=== PATIENT | female | born 1950 | race Caucasian/White ===

== ENCOUNTER 2017-11-07 19:34 | Emergency (ER) | payer MEDICARE, BC ==
[2017-11-07 20:11] LABS: BASOPHILS 0.2 % (0-2); EOSINOPHILS 1.5 % (0-7); HEMATOCRIT 39.7 % (36.0-48.0); HEMOGLOBIN 12.8 g/dL (12-16); IMMATURE GRANULOCYTES 0.2 % (0-5); LYMPHOCYTES 19.2 % (15-50); MCHC 32.2 g/dL (31.0-37.0); MCV 80.7 fL (80.0-100.0); MEAN PLATELET VOLUME 9.6 fL (7.4-10.4); MONOCYTES 8.2 % (2-11); NEUTROPHILS 70.7 % (40-80); PLATELET COUNT 215 10x3/uL (130-400); RBC 4.92 10x6/uL (4.00-5.40); RDW 14.4 % (11.5-14.5)
[2017-11-07 20:37] LABS: ALBUMIN 3.8 g/dL (3.4-5.0); ALKALINE PHOSPHATASE 112 U/L (46-116); ALT (SGPT) 25 U/L (10-68); AMYLASE - SERUM 18 U/L (25-115); BILIRUBIN - TOTAL 0.31 mg/dL (0.2-1.3); CALC OSMOLALITY 284 mosm/kg (275-300); CALCIUM 9.4 mg/dL (8.5-10.1); CARBON DIOXIDE 27.2 mmol/L (21.0-32.0); CHLORIDE - SERUM 103 mmol/L (98-107); CREATININE - SERUM 0.8 mg/dL (0.6-1.3); GLUCOSE 222 mg/dL (74-106); POTASSIUM - SERUM 3.9 mmol/L (3.5-5.1); PROTEIN - SERUM 7.4 g/dL (6.4-8.2); SODIUM 140 mmol/L (136-145); UREA NITROGEN 11 mg/dL (7-18); eGFR NON AFRICAN AMERICAN 76 mL/min (90-120)
[2017-11-07 20:47] LABS: LIPASE 36 U/L (73-393)
[2017-11-07 20:49] LABS: APPEARANCE HAZY (CLEAR); BILIRUBIN NEGATIVE (NEGATIVE); COLOR YELLOW (YELLOW); GLUCOSE 100 mg/dL (NEGATIVE); KETONE NEGATIVE (NEGATIVE); NITRITE NEGATIVE (NEGATIVE); PROTEIN NEGATIVE (NEGATIVE); UROBILINOGEN NORMAL (NORMAL)
[2017-11-07 20:50] LABS: BACTERIA MODERATE /hpf (NONE SEEN); EPITHELIAL CELLS 0-5 /hpf (0-5); RED CELLS - URINE >50 /hpf (0-5)
== END 2017-11-07 23:11 | disposition home or self-care (01) ==
LOC: D.ER 19:34
PROVIDERS: Family Medicine
DX: N20.0 Calculus of kidney (principal); E11.9 Type 2 diabetes mellitus without complications; I10 Essential (primary) hypertension; K58.9 Irritable bowel syndrome, unspecified

== ENCOUNTER 2018-07-04 22:14 | Observation (INO) | payer MEDICARE, BC ==
[~2018-07-04] VITALS: Ht 160 cm; Wt 86.4 kg
--- NOTE | ~2018-07-04 | HEMODYNAMI ---
PATIENT:JORGE LOPEZ MEDICAL RECORD: [id number] : 50 [id number] ADMISSION DATE: 07/04/18 Generatedon:07/05/201810:52 Patient name: JORGE LOPEZ Patient #: [id number] SSN: : 1950 Date of study: 07/05/2018 Page: Of Hemodynamic Procedure Report Patient Data Patient Demographics Procedure consent was obtained First Name: JORGE Gender: Female Last Name: JOHN : 1950 Patient #: [id number] Age: 68 year(s) Race: Unknown Additional ID: [id number] Contact details Address: [address] [place] [address] [address] State: [place] City: [place] Zip code: [address] Past Medical History Allergies: No known allergies Admission Admission Data Admission Date: 07/04/2018 Admission Time: 23:59 Admit Source: Emergency department Room #: D.5 Procedure Procedure Types Cath Procedure Diagnostic Procedure LHC LHC w/Coronaries Procedure Description Procedure Date Procedure Date: 07/05/2018 Procedure Start Time: 10:36 Procedure End Time: 10:52 Procedure Staff Name Function Jovan Bishop MD Performing Physician Ana Du RT Monitor Carito Plummer RN Nurse Ang Dougherty RT Scrub Procedure Data Cath Procedure Fluoroscopy Diagnostic fluoroscopy Total fluoroscopy Time: 2.2 time: 2.2 min min Diagnostic fluoroscopy Total fluoroscopy dose: 404 dose: 404 mGy mGy Contrast Material Contrast Material Type Amount (ml) Isovue 300 51 Entry Location Entry Primary Successful Side Size Upsize Upsize Entry Closure Haddad ccessful Closure Location (Fr) 1 (Fr) 2 (Fr) Remarks Device Remarks Femoral Right 5 Fr Manual vein Compression Femoral Right 5 Fr Exoseal artery Estimated blood loss: 5 ml Diagnostic catheters Device Type Used For End Catheter Placement MULTIPACK JL 4.0 5Fr LV Angiography catheter MULTIPACK 3DRC 5Fr Right Coronary catheter Angiography MULTIPACK Pigtail 5 Fr LV Angiography catheter Procedure Complications No complications Procedure Medications Medication Administration Route Dosage 0.9% NaCl I.V. ml/hr Oxygen etCO2 Nasal cannula 2 l/min Zofran I.V. 4 mg Heparin Flush Bag added to field 2 bags (1000units/500ml NS) Versed I.V. 2 mg Fentanyl I.V. 50 mcg Lidocaine 2% added to field 20 Versed I.V. 1 mg Fentanyl I.V. 50 mcg Hemodynamics Rest Heart Rate: 98 (bpm) Pressure Samples Time Site Value (mmHg) Purpose Heart Use Rate(bpm) 10:46 LV 110/13,20 EDP 94 10:47 AO 106/52(70) Pullback 94 10:47 LV 112/10,19 Pullback 94 Gradients Valve Time Site 1 Site 2 Mean SEP/DFP Peak To Heart Use (mmHg) (sec/min) Peak Rate (mmHg) (bpm) Aortic 10:47 LV AO 27 11 6 94 112/10,19 106/52(70) Calculations Valve P-P Mean Valve Index Valve Source Name Gradient Area Flow (cm2) Aortic 6 27 6 27 Snapshots Pre Cath Intra NCS Post Cath Vital Signs Time Heart Resp SPO2 etCO2 NIBP Rhythm Pain Sedation Rate (ipm) (%) (mmHg) (mmHg) Status Level (bpm) 10:21:12 97 14 96 24.3 112/57(90) NSR 0 (11) 10(A) , No pain 10:25:35 94 11 96 12 109/58(78) NSR 0 (11) 10(A) , No pain 10:29:57 93 10 97 16.7 108/64(85) NSR 0 (11) 10(A) , No pain 10:34:19 92 10 97 14.5 109/60(79) NSR 0 (11) 10(A) , No pain 10:38:39 92 12 97 15.2 116/66(83) NSR 0 (11) 10(A) , No pain 10:43:03 90 10 96 16.7 118/63(99) NSR 0 (11) 9(A) , No pain 10:47:27 93 11 97 11.4 119/66(83) NSR 0 (11) 9(A) , No pain 10:51:54 92 10 97 16 115/60(76) NSR 0 (11) 9(A) , No pain Medications Time Medication Route Dose Verified Delivered Reason Notes Eff ectiveness by by 10:15:05 Oxygen etCO2 2 Jovan Craito used for Nasal l/min Dario Plummer procedure cannula RN 10:15:05 0.9% NaCl I.V. ml/hr Jovan Carito used for Dario Plummer process development technician 10:17:04 Zofran I.V. 4 mg Jovan Carito for nausea Dario Plummer RN 10:27:39 Heparin Flush added 2 Jovan Jovan used for Bag to bags Dario Bishop MD procedure (1000units/500ml field NS) 10:33:52 Versed I.V. 2 mg Jovan Carito for Dario Plummer sedation RN 10:34:05 Fentanyl I.V. 50 Jovan Carito for mcg Dario Plummer sedation RN 10:34:15 Lidocaine 2% added 20ml Jvoan Jovan for local to vial Dario Bishop MD anesthetic field 10:40:33 Versed I.V. 1 mg Jovan Carito for Dario Plummer sedation RN 10:40:47 Fentanyl I.V. 50 Jovan Carito for mcg Dario Plummer sedation manager adult Log Time Note 9:34:30 Admit Source: Emergency department 9:34:32 Diagnostic Cath status Elective 9:34:35 Time tracking: Regular hours (M-F 7:00 - 5:00) 9:34:39 Plan of Care:Hemodynamics will remain stable., Cardiac rhythm will remain stable., Comfort level will be maintained., Respiratory function will remain adequate., Patient/ family verbilizes understanding of procedure., Procedure tolerated without complication., Recovers from procedure without complications.. 9:35:33 Lab Result : BUN 13 mg/dl 9:35:33 Lab Result : Creatinine 0.8 mg/dl 9:35:33 Lab Result : Hematocrit 33.6 % 9:35:33 Lab Result : Hemoglobin 10.7 g/dl 9:35:35 Lab results completed and on chart. 9:35:37 Lab results completed and on chart. 9:36:21 H&P Date Dictated: 07/05/2018 Within 30 days and on chart.. 9:56:12 Carito Plummer RN sent for patient. Start room use. 10:07:24 Patient received from PCU to CCL 1 Alert and oriented. Tansferred to table in Supine position. 10:07:25 Warm blankets applied, and bernardo hugger turned on for patient comfort. 10::25 Correct patient and procedure confirmed by team. 10:: Signed procedure consent form obtained from patient. 10:07:28 ECG and BP/O2 sat monitors applied to patient. 10:07:29 Full Disclosure recording started 10:15:05 Oxygen 2 l/min etCO2 Nasal cannula was administered by Carito Plummer RN; used for procedure; 10:15:05 0.9% NaCl ml/hr I.V. was administered by Carito Plummer RN; used for procedure; 10:17:04 Zofran 4 mg I.V. was administered by Carito Plummer RN; for nausea; 10::44 Vital chart was started 10:21:12 Baseline sample Acquired. 10:21:18 Rhythm: sinus rhythm 10:21:22 Pre-procedure instructions explained to patient. 10:21:23 Pre-op teaching completed and patient verbalized understanding. 10:21:24 Family in waiting room. 10:21:26 Patient NPO since Midnight. 10:21:31 Patient allergic to No known allergies 10:21:35 Is the patient allergic to Iodine/contrast media? No. 10:21:43 Is patient on blood thinner?Yes 10:21:45 ACC The patient was administered the following blood thiners within the last 24 hours: ACCPlavix 10:21:51 ACC The patient was administered the following blood thiners within the last 24 hours: ACCLovenox 10:21:54 Patient diabetic? Yes. 10:21:55 If diabetic: On Metformin? No 10:21:58 Previous problem with sedation/anesthesia? No ? 10:21:59 Snore? Yes 10:22:00 Sleep apnea? No 10:22:01 Deviated septum? No 10:22:02 Opens mouth fully? Yes 10:22:02 Sticks out tongue? Yes 10:22:55 Airway obstruction? Yes ASTHMA 10:22:59 Dentures? No ? 10:23:04 Pre procedure: right dorsailis pedis pulse 2+ Normal; easily identifiable; not easily obliterated 10:23:06 Modified Minh's test Ulnar > 7 seconds. 10:23:32 Patient pain scale 9/10 BACK PAIN. 10:23:40 IV patent on arrival in right hand with 0.9% NaCl at [facility]. 10:23:54 Right groin area was prepped with chlora-prep and draped in sterile fashion 10:23:55 Alarms reviewed by R. N. 10:23:55 Sharps counted by scrub and verified by R.N. 10:24:01 Use device set Femoral Dx 10:24:02 ACIST Syringe (29436) opened to sterile field. 10:24:03 Bag Decanter (2002S) opened to sterile field. 10:24:03 Medline Cath Pack ([id number]) opened to sterile field. 10:24:04 DIAGNOSTIC WIRE .035 260cm J wire (691913) opened to sterile field. 10:24:05 ACIST Hand Control (47806) opened to sterile field. 10:24:06 ACIST Manifold (65044) opened to sterile field. 10:24:06 DIAGNOSTIC Multipack 5Fr catheter set ([id number]) opened to sterile field. 10:24:09 SHEATH 5FR [place] (DPP944) opened to sterile field. 10:27:39 Heparin Flush Bag (1000units/500ml NS) 2 bags added to field was administered by Jovan Bishop MD; used for procedure; 10:32:40 Zero performed for pressure channel P1 10:32:46 Zero performed for pressure channel P1 10:32:50 Zero performed for pressure channel P1 10:32:57 Final Timeout: patient, procedure, and site verified with staff and physician. All members of the team are in agreement. 10:33:00 Right groin site verified by team. 10:33:03 Physical assessment completed. ASA score P 2 - A patient with mild systemic disease as per Jovan Bishop MD. 10:33:05 Sedation plan: IV Moderate Sedation Medication:Versed, Fentanyl 10:33:52 Versed 2 mg I.V. was administered by Carito Plummer RN; for sedation; 10:34:05 Fentanyl 50 mcg I.V. was administered by Carito Plummer RN; for sedation; 10:34:15 Lidocaine 2% 20ml vial added to field was administered by Jovan Bishop MD; for local anesthetic; 10:35:30 Procedure started. 10:36:00 Local anesthetic to right femoral artery with Lidocaine 2% by Jovan Bishop MD.INITIAL ACCESS ONLY 10:40:06 A 5 Fr sheath was inserted into the Right Femoral vein 10:40:13 SHEATH 5FR [place] (ENV153) opened to sterile field. 10:40:33 Versed 1 mg I.V. was administered by Carito Plummer RN; for sedation; 10:40:47 Fentanyl 50 mcg I.V. was administered by Carito Plummer RN; for sedation; 10:41:02 A 5 Fr sheath was inserted into the Right Femoral artery 10:42:50 A MULTIPACK JL 4.0 5Fr catheter was advanced over the wire and used for LV Angiography. 10:43:47 Catheter removed. 10:44:11 A MULTIPACK 3DRC 5Fr catheter was advanced over the wire and used for Right Coronary Angiography. 10:45:45 Catheter removed. 10:46:02 A MULTIPACK Pigtail 5 Fr catheter was advanced over the wire and used for LV Angiography. 10:47:05 LV gram done using YEBOAH 10:47:06 LV hemodynamics recorded. 10:47:09 Injector settings: Ml/sec: 10, Volume: 20, 10:47:20 EF : 55 % 10:47:35 Catheter removed. 10:47:49 Sheath removed intact; hemostasis achieved with Exoseal to the Right Femoral artery. 10:47:57 Sheath removed intact; hemostasis achieved with Manual Compression to the Right Femoral vein. 10:47:59 Procedure ended.(Physican Out) 10:48:25 Fluoroscopy time 02.20 minutes. 10:48:29 Flurop Dose total: 404 10:48:29 Fluoroscopy dose: 404 mGy 10:48:32 Contrast amount:Isovue 300 51ml. 10:48:33 Sharps counted by scrub and verified by R.N. 10:48:40 Insertion/operative site no bleeding no hematoma. 10:48:46 Post-op/insertion site Right Femoral artery dressed using a 4 x 4 and Tegaderm. 10:48:49 Post right femoral artery:stable, clean and dry 10:48:51 Post Procedure Pulses reassessed and unchanged 10:49:06 Post-procedure physical assessment completed. ASA score P 2 - A patient with mild systemic disease as per Jovan Bishop MD. 10:49:10 Post procedure rhythm: unchanged. 10:49:12 Estimated blood loss: 5 ml 10:49:13 Post procedure instruction explained to patient.Patient verbalizes understanding. 10:49:14 Patient needs reinforcement of post procedure teaching. 10:49:23 Procedure Complication : No complications 10:49:25 See physician's report for complete and final results. 10:49:36 EXOSEAL 5Fr (EX500) opened to sterile field. 10:49:40 Tegaderm 4 x 4 (1626W) opened to sterile field. 10:50:03 Procedure and supply charges have been captured, reviewed, submitted and are correct. 10:52:00 Vital chart was stopped 10:52:01 Report given to PCU. 10:52:10 Patient transfered to PCU with Bed. 10:52:12 Procedure ended. 10:52:12 Full Disclosure recording stopped 10:52:15 End room use (Document Last) Device Usage Item Name Manufacture Quantity Catalog Hospital Part Current Minimal L ot# / Number Charge Number Stock Stock Serial# Code ACIST Acist 1 00881 673082 138774 322302 20 Syringe Medical (23528) Systems Inc Bag Microtek 1 2001S 096683 37020 577320 5 Decanter Medical Inc. () Medline Medline 1 [id number] 657553 25743 469385 5 Cath Pack ([id number]) DIAGNOSTIC St Mitch 1 678858 010985 584595 432152 30 WIRE .035 260cm J wire (372718) ACIST Hand Acist 1 75113 126648 379574 935757 5 Control Medical (07347) Systems Inc ACIST Acist 1 72321 423415 694015 580336 5 Manifold Medical (23517) Systems Inc DIAGNOSTIC Cardinal 1 [id number] 725951 39310 329462 30 Multipack Health 5Fr catheter set (JM5912) SHEATH 5FR Terumo 2 RCG758 703844 777054 154360 5 [place] (VCZ815) MULTIPACK Cardinal 1 093445 5 JL 4.0 5Fr Health catheter MULTIPACK Cardinal 1 549814 5 3DRC 5Fr Health catheter MULTIPACK Cardinal 1 422330 5 Pigtail 5 Health Fr catheter EXOSEAL 5Fr Cardinal 1 EX500 032499 603858 615607 10 (EX500) Health Tegaderm 4 3M 1 1626W 419014 614630 756793 5 x 4 (1626W) Signature Audit [place] Stage Time Signature Unsigned Intra-Procedure 07/05/2018 Ana 10:52:34 AM Counts RT(R) Signatures Monitor : Ana Signature : Counts RT Date : Time : [place] [id number]
[2018-07-04 23:09] LABS: BASOPHILS 0.1 % (0-2); EOSINOPHILS 0.4 % (0-7); HEMATOCRIT 33.6 % (36.0-48.0); HEMOGLOBIN 10.7 g/dL (12-16); IMMATURE GRANULOCYTES 0.2 % (0-5); LYMPHOCYTES 10.6 % (15-50); MCH 25.4 pg (26.0-34.0); MCHC 31.8 g/dL (31.0-37.0); MCV 79.6 fL (80.0-100.0); MEAN PLATELET VOLUME 10.2 fL (7.4-10.4); MONOCYTES 7.2 % (2-11); NEUTROPHILS 81.5 % (40-80); PLATELET COUNT 191 10x3/uL (130-400); RBC 4.22 10x6/uL (4.00-5.40); RDW 14.7 % (11.5-14.5); WBC 8.2 10x3/uL (4.8-10.8)
[2018-07-04 23:21] LABS: ALBUMIN 3.1 g/dL (3.4-5.0); ALKALINE PHOSPHATASE 101 U/L (46-116); ALT (SGPT) 24 U/L (10-68); BILIRUBIN - TOTAL 0.41 mg/dL (0.2-1.3); CALC OSMOLALITY 285 mosm/kg (275-300); CALCIUM 8.6 mg/dL (8.5-10.1); CARBON DIOXIDE 26.4 mmol/L (21.0-32.0); CHLORIDE - SERUM 101 mmol/L (98-107); CREATININE - SERUM 0.8 mg/dL (0.6-1.3); POTASSIUM - SERUM 4.2 mmol/L (3.5-5.1); PROTEIN - SERUM 6.7 g/dL (6.4-8.2); SODIUM 138 mmol/L (136-145); UREA NITROGEN 13 mg/dL (7-18); eGFR NON AFRICAN AMERICAN 75 mL/min (90-120)
[2018-07-04 23:22] LABS: GLUCOSE 281 mg/dL (74-106); INR 1.03 (0.85-1.17)
[2018-07-04 23:23] LABS: D-DIMER-QUANTITATIVE 0.43 ug/mLFEU (0.20-0.54)
[2018-07-04 23:46] LABS: CKMB 0.6 U/L (0.0-3.6); CREATINE KINASE 55 UL (21-215); MAGNESIUM - SERUM 1.7 mg/dL (1.8-2.4); TROPONIN-I < 0.017 ng/mL (0.000-0.060)
[2018-07-04 23:51] LABS: APPEARANCE CLEAR (CLEAR); BILIRUBIN NEGATIVE (NEGATIVE); COLOR YELLOW (YELLOW); GLUCOSE 1000 mg/dL (NEGATIVE); KETONE SMALL mg/dL (NEGATIVE); NITRITE NEGATIVE (NEGATIVE); PROTEIN NEGATIVE (NEGATIVE); UROBILINOGEN NORMAL (NORMAL)
[2018-07-04 23:52] LABS: BACTERIA NONE SEEN /hpf (NONE SEEN); EPITHELIAL CELLS NSEEN /hpf (0-5); RED CELLS - URINE NONE SEEN /hpf (0-5); WHITE CELLS - URINE 0-5 /hpf (0-5)
[2018-07-05] VITALS: BP 111/53
[2018-07-05 01:16] VITALS: BP 111/53; Ht 160 cm; Wt 86.4 kg
[2018-07-05] MEDS ORDERED: ZOCOR40 MG PO (01:46)
[2018-07-05] MEDS ORDERED: GLIPIZIDE10 MG PO (01:47)
[2018-07-05] MEDS ORDERED: PROTONIX20 MG PO (01:47)
[2018-07-05] MEDS ORDERED: FOLIC ACID1 MG PO (01:48)
[2018-07-05] MEDS ORDERED: METHOTREXATE2.5 MG PO (01:48)
[2018-07-05] MEDS ORDERED: CELEXA20 MG PO (01:49)
[2018-07-05] MEDS ORDERED: NEURONTIN600 MG PO (01:49)
[2018-07-05] MEDS ORDERED: COZAAR50 MG PO (01:50)
[2018-07-05] MEDS ORDERED: VITAMIN D5000 UNIT PO (01:51)
[2018-07-05] MEDS ORDERED: ULTRAM50 MG PO (01:51)
[2018-07-05] MEDS ORDERED: REMERON15 MG PO (01:52)
[2018-07-05] MEDS ORDERED: HUMULIN R100 U/ML SC (01:56)
[2018-07-05] MEDS ORDERED: SOLIQUA 100 UNIT3 ML SQ (01:59)
[2018-07-05 04:00] VITALS: BP 136/59
[2018-07-05 06:06] LABS: CREATINE KINASE 57 UL (21-215)
[2018-07-05 06:12] LABS: TROPONIN-I < 0.017 ng/mL (0.000-0.060)
[2018-07-05 07:00] VITALS: BP 127/67
[2018-07-05 09:16] LABS: BASOPHILS 0.1 % (0-2); EOSINOPHILS 0.1 % (0-7); HEMATOCRIT 31.4 % (36.0-48.0); HEMOGLOBIN 9.8 g/dL (12-16); IMMATURE GRANULOCYTES 0.1 % (0-5); LYMPHOCYTES 9.4 % (15-50); MCH 25.1 pg (26.0-34.0); MCHC 31.2 g/dL (31.0-37.0); MCV 80.5 fL (80.0-100.0); MEAN PLATELET VOLUME 9.9 fL (7.4-10.4); MONOCYTES 9.4 % (2-11); NEUTROPHILS 80.9 % (40-80); PLATELET COUNT 193 10x3/uL (130-400); RDW 14.8 % (11.5-14.5); WBC 6.9 10x3/uL (4.8-10.8)
[2018-07-05 09:25] LABS: CALC OSMOLALITY 271 mosm/kg (275-300); CALCIUM 8.4 mg/dL (8.5-10.1); CARBON DIOXIDE 26.3 mmol/L (21.0-32.0); CHLORIDE - SERUM 99 mmol/L (98-107); CREATININE - SERUM 0.8 mg/dL (0.6-1.3); POTASSIUM - SERUM 4.3 mmol/L (3.5-5.1); SODIUM 133 mmol/L (136-145); UREA NITROGEN 16 mg/dL (7-18); eGFR NON AFRICAN AMERICAN 75 mL/min (90-120)
[2018-07-05 09:31] LABS: GLUCOSE 194 mg/dL (74-106)
[2018-07-05 11:00] VITALS: BP 127/67
--- NOTE | 2018-07-05 17:46 | MORECARE ---
CASE MANAGEMENT DISCHARGE SUMMARY PATIENT: JORGE LOPEZ UNIT: [id number] ADM DATE: 07/04/18 AGE: 68 : 50 SEX: F ROOM/BED: D.3545 AUTHOR: XIOMARA MARINO PHYSICIAN: REFERRING PHYSICIAN: GISELLE AKBAR M.D. DATE OF SERVICE: 07/05/18 Discharge Plan Patient Name: JORGE LOPEZ Facility: [facility]:[place] : 1950 Planned Disposition: Home Anticipated Discharge Date: 07/05/18 Discharge Date: 07/05/2018 Expected LOS: 1 Initial Reviewer: [email or web address] Initial Review Date: 07/05/2018 Generated: 07/05/18 6:46 pm Patient Name: JORGE LOPEZ Page 10940 at 1746 All edits/amendments must be made on the electronic document DICTATION DATE: 07/05/181745 VECTOR CONTROL ASSISTANT: ZULEMA 07/05/181745 RPT#: [id number] DC DATE:07/05/18 STATUS: DIS IN [facility] [address] [place] [address] END OF REPORT
== END 2018-07-05 14:18 | disposition home or self-care (01) ==
LOC: D.ER 22:14 → OBSVTIME 23:59 → D.M2 23:59
PROVIDERS: Emergency Medicine; ADMIT Internal Medicine Cardiovascular Disease
DX: R07.89 Other chest pain (principal); E11.9 Type 2 diabetes mellitus without complications; I10 Essential (primary) hypertension; E78.5 Hyperlipidemia, unspecified

== ENCOUNTER 2020-02-08 17:56 | Emergency (ER) | payer MEDICARE, BC ==
[~2020-02-08] VITALS: Ht 160 cm; Wt 86.4 kg
[~2020-02-08 17:56] MED LIST: CELEXA20 MG PO; COZAAR50 MG PO; FOLIC ACID1 MG PO; GLIPIZIDE10 MG PO; HUMULIN R100 U/ML SC; METHOTREXATE2.5 MG PO; NEURONTIN600 MG PO; PROTONIX20 MG PO; REMERON15 MG PO; SOLIQUA 100 UNIT3 ML SQ; ULTRAM50 MG PO; VITAMIN D5000 UNIT PO; ZOCOR40 MG PO
[2020-02-08 18:01] VITALS: Ht 160 cm; Wt 86.4 kg
[2020-02-08 18:18] LABS: BASOPHILS 0.2 % (0-2); EOSINOPHILS 3.4 % (0-7); HEMOGLOBIN 11.5 g/dL (12-16); IMMATURE GRANULOCYTES 0.2 % (0-5); LYMPHOCYTES 26.8 % (15-50); MCH 24.6 pg (26.0-34.0); MCHC 30.3 g/dL (31.0-37.0); MCV 81.2 fL (80.0-100.0); MEAN PLATELET VOLUME 9.2 fL (7.4-10.4); MONOCYTES 7.8 % (2-11); NEUTROPHILS 61.6 % (40-80); PLATELET COUNT 231 10x3/uL (130-400); RBC 4.68 10x6/uL (4.00-5.40); RDW 15.2 % (11.5-14.5); WBC 4.4 10x3/uL (4.8-10.8)
[2020-02-08 18:25] LABS: CALC OSMOLALITY 285 mosm/kg (275-300); CALCIUM 9.4 mg/dL (8.5-10.1); CHLORIDE - SERUM 106 mmol/L (98-107); POTASSIUM - SERUM 3.8 mmol/L (3.5-5.1); SODIUM 144 mmol/L (136-145); UREA NITROGEN 10 mg/dL (7-18); eGFR NON AFRICAN AMERICAN 58 mL/min (90-120)
[2020-02-08 18:26] LABS: GLUCOSE 94 mg/dL (74-106)
[2020-02-08 18:30] LABS: APTT 25.7 SECONDS (22.8-39.4); INR 0.9 (0.85-1.17); PROTIME 12.1 SECONDS (11.6-15.0)
[2020-02-08 18:41] LABS: ALBUMIN 3.6 g/dL (3.4-5.0); ALKALINE PHOSPHATASE 133 U/L (30-120); ALT (SGPT) 22 U/L (10-68); BILIRUBIN - TOTAL 0.23 mg/dL (0.2-1.3); CKMB 0.8 U/L (0.0-3.6); CREATINE KINASE 68 UL (21-215); MAGNESIUM - SERUM 2.1 mg/dL (1.8-2.4); PROTEIN - SERUM 7.3 g/dL (6.4-8.2); TROPONIN-I < 0.017 ng/mL (0.000-0.060)
[2020-02-08 18:57] LABS: BILIRUBIN NEGATIVE (NEGATIVE); GLUCOSE 250 mg/dL (NEGATIVE); KETONE NEGATIVE (NEGATIVE); NITRITE NEGATIVE (NEGATIVE); UROBILINOGEN NORMAL (NORMAL)
[2020-02-08 19:02] LABS: EPITHELIAL CELLS OCC /hpf (0-5); RED CELLS - URINE 0-5 /hpf (0-5)
[2020-02-08 19:05] LABS: BACTERIA FEW /hpf (NEGATIVE)
[2020-02-08] MEDS ORDERED: KEFLEX500 MG PO (19:37)
[2020-02-08 19:57] VITALS: BP 154/62
== END 2020-02-08 19:53 | disposition home or self-care (01) ==
LOC: D.ER 17:56
PROVIDERS: Family Medicine
DX: R07.89 Other chest pain (principal); N39.0 Urinary tract infection, site not specified; E11.9 Type 2 diabetes mellitus without complications; I10 Essential (primary) hypertension; J45.909 Unspecified asthma, uncomplicated; Z79.84 Long term (current) use of oral hypoglycemic drugs